=== PATIENT | male | born 1935 | race Caucasian/White ===

== ENCOUNTER 2017-10-09 09:12 | Inpatient (IN) ==
[2017-10-09] MEDS ORDERED: ONDANSETRON ODT 4 MG TABLET SL ONE (09:35)
[2017-10-09] MEDS ORDERED: 0.9 % SODIUM CHLORIDE 1,000 ML IV ONE ×2 (09:35→10:43)
[2017-10-09] MEDS ORDERED: LEVOFLOXACIN 500 MG TABLET PO ONE (09:35)
[2017-10-09 10:27] LABS: Basophils # (Auto) 0 K/mcL (0.0-0.3); Basophils % (Auto) 0 % (0.0-2.0); Eosinophils # (Auto) 0.3 K/mcL (0.0-0.7); Eosinophils % (Auto) 2.3 % (0.0-7.0); Granulocytes % (Auto) 76.7 % (38.0-78.0); Lymphocytes % (Auto) 8.4 % (15.5-49.0); Mean Cell Volume 93.4 fL (80.0-100.0); Mean Corpuscular HGB Conc 33.9 g/dL (31.0-36.0); Mean Corpuscular Hemoglobin 31.7 pg (26.0-34.0); Monocytes # (Auto) 1.5 K/mcL (0.1-0.9); Monocytes % (Auto) 12.6 % (1.0-12.0); Platelet Count 150 K/mcL (140-440); RBC 4.79 M/mcL (4.50-5.90); Red Cell Distribution Width 13.7 % (11.5-14.5)
[2017-10-09 10:33] LABS: Appearance,Urine CLEAR; Bacteria,Urine 0 /hpf (0); Bilirubin,Urine NEG (NEG); Color,Urine YELLOW; Glucose,Urine (UA) NEGATIVE (NEG); Leukocyte Esterase,Urine NEG /uL (NEG); Mucus,Urine FEW /hpf (0); Protein,Urine NEG (NEG); Specific Gravity,Urine 1.013 (1.000-1.035); Urine Blood 0.2 mg/dL (<0.03); Urine Hyaline Cast 1 /lpf (0-2); Urine RBC 103 /hpf (0-1); Urine Squamous Epithelial Cell 0 /hpf (0-4); Urine WBC 1 /hpf (0-4); Urobilinogen,Urine NEG (NEG)
[2017-10-09 11:11] LABS: ALT/SGPT 14 U/l (0-40); Albumin 3.8 gm/dL (3.2-5.2); Albumin/Globulin Ratio 1.2 (1.0-2.3); Alkaline Phosphatase 45 U/L (39-117); Blood Urea Nitrogen 52 mg/dl (8-23)
--- NOTE | 2017-10-09 11:32 | Emergency Department Note ---
Male Urogenital HPI - General Chief complaint: Urogenital-Male Stated complaint: trouble voiding Time Seen by Provider: 10/09/17 09:25 Source: patient, family Mode of arrival: ambulatory Limitations: no limitations - History of Present Illness HPI Narrative: 82-year-old male with a history of prostate problems comes in for inability to void for the last 2 days. He is having back pain and bladder pressure but no fever. Denies any kidney problems and has a baseline creatinine of 1. He denies any known triggers or drugs. He did have a flu 1 month ago but required without event. He is on Flomax - Related Data Home Medications Medication Instructions Recorded Confirmed ascorbic acid (vitamin C) 500 mg 500 mg PO QDAY tab 02/18/15 10/09/17 tablet calcium carbonate 500 mg calcium 500 mg PO QDAY tab 02/18/15 10/09/17 (1,250 mg) tablet cholecalciferol (vitamin D3) 5,000 10,000 unit PO QDAY tab 02/18/15 10/09/17 unit tablet flaxseed oil 1,030 mg capsule 1,300 mg PO DAILY 02/18/15 10/09/17 [id number] [id number] 1 cap PO QDAY 02/18/15 10/09/17 oil 350 mg- 400 mg capsule Previous Rx's Medication Instructions Recorded trazodone 50 mg tablet 50 mg PO QHS PRN 90 Days #90 tab 07/07/16 tamsulosin 0.4 mg capsule 0.4 mg PO QDAY 90 Days #90 cap 06/12/17 atorvastatin 20 mg tablet 20 mg PO QHS 90 Days #90 tab 08/31/17 Allergies Allergy/AdvReac Type Severity Reaction Status Date / Time diphenhydramine Allergy Unknown Unknown Verified 05/11/17 08:17 [From Advil PM] ibuprofen [From Advil PM] Allergy Unknown Unknown Verified 05/11/17 08:17 Review of Systems All systems ED: reviewed and negative except as stated. Past Medical History - Past Medical History Attestation: Yes: The following information was validated with the patient. Medical history: Reports: hyperlipidemia, hypertension, other (BPH with lower urinary tract symptoms, prediabetes, insomnia) Surgical history ED: Reports: herniorrhaphy, tonsillectomy - Social History smoking status: Never smoker Physical Exam No acute distress. Normocephalic atraumatic. Conjunctive are clear sclerae nonicteric. No nasal discharge or congestion. Oropharynx is pink and moist. Neck is supple without lymphadenopathy or thyromegaly. No carotid bruit. Heart is regular rate and rhythm no murmur appreciated. Lungs are clear to auscultation bilaterally without wheezes rales rhonchi or respiratory distress. Abdomen soft nontender except for suprapubic area. Normoactive bowel sounds. No peritoneal signs or guarding. +2 radial pulse. No pedal edema. Alert and oriented. Skin exam shows very mild intertrigo at the inguinal area meets the pannus. Mild erythema there but no maceration. Limitations: no limitations Course Vital Signs Temperature 96.4 F L 10/09/17 09:12 Pulse Rate 92 H 10/09/17 09:12 Respiratory Rate 20 10/09/17 09:12 Blood Pressure 169/100 10/09/17 09:12 Pulse Oximetry (%) 97 10/09/17 09:12 Temperature 98.4 F 10/09/17 20:19 Pulse Rate 77 10/09/17 12:05 Respiratory Rate 16 10/09/17 20:19 Blood Pressure 157/79 10/09/17 20:19 Pulse Oximetry (%) 97 10/09/17 20:19 Urogenital-Male - Lab Data Lab results reviewed: Yes I reviewed the patient's lab results. Result diagrams: 10/09/17 09:44 10/09/17 12:00 Lab Results 10/09/17 10/09/17 10/09/17 Range/Units 09:44 09:44 09:57 WBC 12.1 H (4.5-11.0) K/mcL RBC 4.79 (4.50-5.90) M/mcL Hgb 15.2 (13.5-16.5) g/dL Hct 44.8 (41.0-55.0) % MCV 93.4 (80.0-100.0) fL MCH 31.7 (26.0-34.0) pg MCHC 33.9 (31.0-36.0) g/dL RDW 13.7 (11.5-14.5) % Plt Count 150 (140-440) K/mcL MPV 9.9 (7.4-10.4) fL Gran % 76.7 (38.0-78.0) % Lymph % (Auto) 8.4 L (15.5-49.0) % [place] % (Auto) 12.6 H (1.0-12.0) % Eos % (Auto) 2.3 (0.0-7.0) % Baso % (Auto) 0 (0.0-2.0) % Gran # 9.3 H (1.8-8.0) K/mcL Lymph # (Auto) 1.0 L (1.5-4.8) K/mcL [place] # (Auto) 1.5 H (0.1-0.9) K/mcL Eos # (Auto) 0.3 (0.0-0.7) K/mcL Baso # (Auto) 0 (0.0-0.3) K/mcL Sodium 138 (133-145) mmol/L Potassium 4.8 (3.3-5.1) mmol/L Chloride 99 (96-108) mmol/L Carbon Dioxide 21 L (22-30) mmol/L Anion Gap 18.0 H (8-16) BUN 52 H (8-23) mg/dl Creatinine 6.2 H* (0.7-1.2) mg/dl GFR Calculation 8 Glucose 106 H (70-105) mg/dL Calcium 9.2 (8.6-10.4) mg/dl Phosphorus (2.7-4.5) mg/dL Magnesium (1.6-2.5) mg/dL Total Bilirubin 0.5 (0.0-1.0) mg/dL AST 21 (0-37) U/l ALT 14 (0-40) U/l Alkaline Phosphatase 45 (39-117) U/L Total Protein 7.0 (5.9-8.4) gm/dL Albumin 3.8 (3.2-5.2) gm/dL Globulin 3.2 (2.2-3.7) gm/dL Albumin/Globulin Ratio 1.2 (1.0-2.3) Procalcitonin (<0.10) ng/mL Urine Color Yellow Urine Appearance Clear Urine pH 6.0 (5.0-9.0) Ur Specific [place] 1.013 (1.000-1.035) Urine Protein Neg (NEG) mg/dL Urine Glucose (UA) Negative (NEG) mg/dL Urine Ketones Neg (NEG) mg/dL Urine Occult Blood 0.2 A (<0.03) mg/dL Urine Nitrate Neg (NEG) Urine Bilirubin Neg (NEG) mg/dL Urine Urobilinogen Neg (NEG) mg/dL Ur Leukocyte Esterase Neg (NEG) /uL Urine RBC 103 H (0-1) /hpf Urine WBC 1 (0-4) /hpf Ur Squamous Epith Cells 0 (0-4) /hpf Urine Bacteria 0 (0) /hpf Hyaline Casts 1 (0-2) /lpf Urine Mucus Few (0) /hpf Ur Culture Indicated? No Urine Eosinophils Ur Random Creatinine mg/dl U Random Total Protein mg/dl U [place] Prot/Creat Ratio mg:mg Ur Random Sodium mmol/L 10/09/17 10/09/17 10/09/17 Range/Units 09:57 09:57 12:00 WBC (4.5-11.0) K/mcL RBC (4.50-5.90) M/mcL Hgb (13.5-16.5) g/dL Hct (41.0-55.0) % MCV (80.0-100.0) fL MCH (26.0-34.0) pg MCHC (31.0-36.0) g/dL RDW (11.5-14.5) % Plt Count (140-440) K/mcL MPV (7.4-10.4) fL Gran % (38.0-78.0) % Lymph % (Auto) (15.5-49.0) % [place] % (Auto) (1.0-12.0) % Eos % (Auto) (0.0-7.0) % Baso % (Auto) (0.0-2.0) % Gran # (1.8-8.0) K/mcL Lymph # (Auto) (1.5-4.8) K/mcL [place] # (Auto) (0.1-0.9) K/mcL Eos # (Auto) (0.0-0.7) K/mcL Baso # (Auto) (0.0-0.3) K/mcL Sodium (133-145) mmol/L Potassium (3.3-5.1) mmol/L Chloride (96-108) mmol/L Carbon Dioxide (22-30) mmol/L Anion Gap (8-16) BUN (8-23) mg/dl Creatinine (0.7-1.2) mg/dl GFR Calculation Glucose (70-105) mg/dL Calcium (8.6-10.4) mg/dl Phosphorus (2.7-4.5) mg/dL Magnesium (1.6-2.5) mg/dL Total Bilirubin (0.0-1.0) mg/dL AST (0-37) U/l ALT (0-40) U/l Alkaline Phosphatase (39-117) U/L Total Protein (5.9-8.4) gm/dL Albumin (3.2-5.2) gm/dL Globulin (2.2-3.7) gm/dL Albumin/Globulin Ratio (1.0-2.3) Procalcitonin < 0.10 (<0.10) ng/mL Urine Color Urine Appearance Urine pH (5.0-9.0) Ur Specific [place] (1.000-1.035) Urine Protein (NEG) mg/dL Urine Glucose (UA) (NEG) mg/dL Urine Ketones (NEG) mg/dL Urine Occult Blood (<0.03) mg/dL Urine Nitrate (NEG) Urine Bilirubin (NEG) mg/dL Urine Urobilinogen (NEG) mg/dL Ur Leukocyte Esterase (NEG) /uL Urine RBC (0-1) /hpf Urine WBC (0-4) /hpf Ur Squamous Epith Cells (0-4) /hpf Urine Bacteria (0) /hpf Hyaline Casts (0-2) /lpf Urine Mucus (0) /hpf Ur Culture Indicated? Urine Eosinophils TNP Ur Random Creatinine 69.5 mg/dl U Random Total Protein 12 mg/dl U [place] Prot/Creat Ratio 0.17 mg:mg Ur Random Sodium 137 mmol/L 10/09/17 10/09/17 Range/Units 12:00 12:00 WBC (4.5-11.0) K/mcL RBC (4.50-5.90) M/mcL Hgb (13.5-16.5) g/dL Hct (41.0-55.0) % MCV (80.0-100.0) fL MCH (26.0-34.0) pg MCHC (31.0-36.0) g/dL RDW (11.5-14.5) % Plt Count (140-440) K/mcL MPV (7.4-10.4) fL Gran % (38.0-78.0) % Lymph % (Auto) (15.5-49.0) % [place] % (Auto) (1.0-12.0) % Eos % (Auto) (0.0-7.0) % Baso % (Auto) (0.0-2.0) % Gran # (1.8-8.0) K/mcL Lymph # (Auto) (1.5-4.8) K/mcL [place] # (Auto) (0.1-0.9) K/mcL Eos # (Auto) (0.0-0.7) K/mcL Baso # (Auto) (0.0-0.3) K/mcL Sodium 143 (133-145) mmol/L Potassium 5.1 (3.3-5.1) mmol/L Chloride 107 (96-108) mmol/L Carbon Dioxide 19 L (22-30) mmol/L Anion Gap 17.0 H (8-16) BUN 43 H (8-23) mg/dl Creatinine 4.1 H 4.2 H (0.7-1.2) mg/dl GFR Calculation 13 12 Glucose 93 (70-105) mg/dL Calcium 8.8 (8.6-10.4) mg/dl Phosphorus 4.2 (2.7-4.5) mg/dL Magnesium 2.4 (1.6-2.5) mg/dL Total Bilirubin (0.0-1.0) mg/dL AST (0-37) U/l ALT (0-40) U/l Alkaline Phosphatase (39-117) U/L Total Protein (5.9-8.4) gm/dL Albumin 3.8 (3.2-5.2) gm/dL Globulin (2.2-3.7) gm/dL Albumin/Globulin Ratio (1.0-2.3) Procalcitonin (<0.10) ng/mL Urine Color Urine Appearance Urine pH (5.0-9.0) Ur Specific [place] (1.000-1.035) Urine Protein (NEG) mg/dL Urine Glucose (UA) (NEG) mg/dL Urine Ketones (NEG) mg/dL Urine Occult Blood (<0.03) mg/dL Urine Nitrate (NEG) Urine Bilirubin (NEG) mg/dL Urine Urobilinogen (NEG) mg/dL Ur Leukocyte Esterase (NEG) /uL Urine RBC (0-1) /hpf Urine WBC (0-4) /hpf Ur Squamous Epith Cells (0-4) /hpf Urine Bacteria (0) /hpf Hyaline Casts (0-2) /lpf Urine Mucus (0) /hpf Ur Culture Indicated? Urine Eosinophils Ur Random Creatinine mg/dl U Random Total Protein mg/dl U [place] Prot/Creat Ratio mg:mg Ur Random Sodium mmol/L - Radiology Data Radiology results reviewed: Yes I reviewed the patient's radiology results. Initial bladder scan was 812. After putting in rico we did get out over 1500 milliliters of red urine-obvious hematuria. Disposition Pt seen by MEDICAL SCREENER/PA only: No Clinical Impression: Acute retention of urine, Acute kidney injury Summary: After initial evaluation and placing Rico after bladder scan we started IV fluids because of decreased intake. Laboratory was ordered. Levaquin was started for possible prostatitis and Zofran for nausea. Laboratory showed increasing creatinine to 6.3. He ended up getting 2 L of IV fluid Because of the acute kidney injury secondary to urinary retention hospitalist was contacted for admission. Dr. West agreed to accept the patient for further workup and treatment Disposition: Xfer As Inpt ([facility]) Condition: Fair
--- NOTE | 2017-10-09 12:17 | Nephrology Consult Note ---
History of Present Illness - Reason for Consult Patient information: Note initiated : 10/09/17 at 12:14 pm Service Date, if different from initiated Date: [] Patient: Gilbert Hutchinson 82 y/o M admitted on for Trouble Voiding. Chief Complaint: [] Consult date: 10/09/17 acute renal failure Requesting physician: Trenton Painting - Chief Complaint Unable to urinate for 2 days - History of Present Illness Gilbert Hutchinson is an [id number] male with no history of chronic kidney disease , but BPH with LUTS, hypertension, hyperlipidemia presented to ED for unable to urinate for 2 days. He had previous episodes of urinary retention but declined/ delayed urology evaluation. Review of Systems Constitutional: anorexia, weakness Nose, mouth and throat: no headache(s), no neck pain Cardiovascular: leg edema, no chest pain Respiratory: no cough, no dyspnea, no wheezing Gastrointestinal: no diarrhea, no melena, no nausea, no vomiting Genitourinary: change in urinary stream, difficulty urinating Musculoskeletal: no neck pain, no stiffness Integumentary: no erythema, no jaundice Neurological: weakness, no confusion Psychiatric: no anxiety, no confusion Endocrine: no change in body appearance, no heat intolerance Hematologic/Lymphatic: no easy bleeding, no easy bruising Allergic/Immunologic: no tongue swelling, no uticaria Past History Past medical history: Medical History (Last Reviewed 05/11/17 @ 09:22 by Pretty Armstrong DO) Benign prostatic hypertrophy without lower urinary tract symptoms (LUTS) ( Chronic 08/08/13) Keratosis pilaris (Chronic) Seborrheic dermatitis (Chronic) Urinary retention (Chronic) Encounter for Health Maintenance Examination in Adult (Chronic) Lymphadenitis (Chronic) Benign localized prostatic hyperplasia with lower urinary tract symptoms (LUTS) (Chronic) Prostate disorder (Chronic) Prediabetes (Chronic 10/24/13) Insomnia (Chronic) Hypertension, essential (Chronic 10/24/13) Eczema (Chronic) Dyslipidemia (Chronic) Atopic dermatitis (Chronic) Abdominal pain (Resolved) Past surgical history: Past Surgical History (Last Reviewed 05/11/17 @ 09:22 by Pretty Armstrong DO) History of colonoscopy (Chronic) History of hernia repair (Chronic) History of tonsillectomy (Chronic) Past family history: Family History (Last Reviewed 09/21/17 @ 09:22 by Pretty Armstrong DO) Mother Chronic obstructive pulmonary disease Daughter Malignant neoplasm of colon, Onset Age: 38 Father Family history of cardiac disorder Acute myocardial infarction Grandmother Family history of cardiac disorder Essential hypertension Past social history: Lives with his in [place]. Medications and Allergies Home Medications Medication Instructions Recorded Confirmed Type ascorbic acid (vitamin C) 500 mg 500 mg PO QDAY tab 02/18/15 05/11/17 History tablet calcium carbonate 500 mg calcium 500 mg PO QDAY tab 02/18/15 05/11/17 History (1,250 mg) tablet cholecalciferol (vitamin D3) 5,000 10,000 unit PO QDAY tab 02/18/15 05/11/17 History unit tablet flaxseed oil 1,030 mg capsule See Dose Instructions .ROUTE 02/18/15 05/11/17 History .MEDSUPPLY -ykm-egh-other [id number] 1 cap PO QDAY 02/18/15 05/11/17 History oil 350 mg- 400 mg capsule trazodone 50 mg tablet 50 mg PO QHS PRN 90 Days #90 tab 07/07/05/11/17 Rx tamsulosin 0.4 mg capsule 0.4 mg PO QDAY 90 Days #90 cap 06/12/17 Rx atorvastatin 20 mg tablet 20 mg PO QHS 90 Days #90 tab 08/31/17 Rx Allergies Allergy/AdvReac Type Severity Reaction Status Date / Time diphenhydramine Allergy Unknown Unknown Verified 05/11/17 08:17 [From Advil PM] ibuprofen [From Advil PM] Allergy Unknown Unknown Verified 05/11/17 08:17 Exam - Vital Signs Vital signs: Temp Pulse Resp BP Pulse Ox 96.4 F L 77 20 154/79 94 10/09/17 09:12 10/09/17 12:05 10/09/17 12:05 10/09/17 12:05 10/09/17 12:05 - General Appearance General appearance: well-developed, well-nourished, appears started age EENT: mucous membranes moist, hearing intact Neck: supple Respiratory: clear Cardiology: normal S1, normal S2 Gastrointestinal: normoactive bowel sounds, no tenderness Integumentary: no rash, warm and dry Neurologic: alert and oriented x3 Musculoskeletal: no cyanosis Psychiatric: mood/affect appropriate, cooperative Additional exam: Trace lower extremity edema. Results - Lab Results 10/09/17 09:44 10/09/17 09:44 Most recent lab results Calcium 9.2 mg/dl (8.6-10.4) 10/09/17 09:44 Assessment and Plan (1) Acute kidney injury Due to obstructive nephropathy from prostate enlargement based on evaluation so far. Anticipate full recovery. Status: Acute Priority: High (2) Obstructive nephropathy due to benign prostatic hyperplasia Urology evaluation and treatment. Would keep Pelaez until urology evaluation. Status: Acute Priority: High (3) High anion gap metabolic acidosis Anticipate post obstructive diuresis and electrolyte abnormalities. Would not replace IV fluid more than 1/2 urine output. Status: Acute Priority: Medium (4) Benign localized prostatic hyperplasia with lower urinary tract symptoms ( LUTS) Status: Chronic Priority: Medium
[2017-10-09] MEDS ORDERED: ONDANSETRON 4 MG/2 ML VIAL IV PRN (12:24)
[2017-10-09] MEDS ORDERED: ACETAMINOPHEN 325 MG TABLET PO PRN (12:24)
[2017-10-09] MEDS ORDERED: HYDROcodone/APAP 5/325MG TABLET PO PRN (12:24)
[2017-10-09] MEDS ORDERED: NALOXONE HCL 0.4 MG/ML VIAL IV PRN (12:24)
[2017-10-09] MEDS ORDERED: MAGNESIUM HYDROXIDE 30 ML ORAL.SUSP PO PRN (12:24)
[2017-10-09] MEDS: 0.9 % SODIUM CHLORIDE 1,000 ML IV SCH (12:48)
--- NOTE | 2017-10-09 13:00 | XRay Report ---
HISTORY: Reason for Exam:renal failure FINDINGS: Lungs are clear and normally expanded. There is no evidence of pulmonary edema or fluid overload. The heart size, mediastinum and drake are normal. 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 Left clavicle is deformed by an old healed fracture. IMPRESSION: No acute abnormality Interpreted and Authenticated by: Lyndon Conley 10/09/17
--- NOTE | 2017-10-09 13:17 | Internal Med History&Physical ---
Medical - H&P: HPI Patient information: Note initiated : 10/09/17 at 1:11 pm Service Date, if different from initiated Date: [] Patient: Gilbert Hutchinson 82 y/o M admitted on 10/09/17 for Trouble Voiding. Chief Complaint: [] History of present illness: Mr. Hutchinson is a 82 year old Male, with history of BPH, presents to the emergency room today, with complaints of lower abdominal pain that has been bothering him for the last 2days. The patient notes that he was able to pass urine well. Last Monday, he was on a trip, n Monday and since then he has not been able to pass urine. He's had increased urgency, constant desire to pass urine but has not been able to pass any urine. The patient's condition worsened over the weekend, he started to develop lower abdominal pain, moderate to severe, and therefore he decided to present to the emergency room for further evaluation. pain is the lower abdomen , intermittent, waxing and waning intensity, nonradiating, spastic in nature. Usually associated with urgency to pass urine. The patient has had a similar episode in the past 3 years ago. He was not able to pass any urine, but that time he had taken the Flomax and he responded well. This time around, he had not taken his Flomax with him, I believe for 2-3 days. And despite taking the Flomax when he came back the medication did not help much. The patient denies any increased frequency of urination, burning urination, fever, chills, headache, dizziness, chest pain, shortness of breath. No nausea , no vomiting, no diarrhea, no constipation. In the emergency room. BECKER was passed, 1700 cc was removed, creatinine was 6.3. B UN was 52. Patient was admitted to the hospital for further management. Nephrology consulted and evaluated the patient. All systems: reviewed and no additional remarkable complaints except as stated ( as per HPI) Medical - H&P: PMH Medical history: Medical History (Last Reviewed 05/11/17 @ 09:22 by Pretty Armstrong DO) Benign prostatic hypertrophy without lower urinary tract symptoms (LUTS) ( Chronic 08/08/13) Keratosis pilaris (Chronic) Seborrheic dermatitis (Chronic) Urinary retention (Chronic) Encounter for Health Maintenance Examination in Adult (Chronic) Lymphadenitis (Chronic) Benign localized prostatic hyperplasia with lower urinary tract symptoms (LUTS) (Chronic) Prostate disorder (Chronic) Prediabetes (Chronic 10/24/13) Insomnia (Chronic) Hypertension, essential (Chronic 10/24/13) Eczema (Chronic) Dyslipidemia (Chronic) Atopic dermatitis (Chronic) Abdominal pain (Resolved) Surgical history: Past Surgical History (Last Reviewed 05/11/17 @ 09:22 by Pretty Armstrong DO) History of colonoscopy (Chronic) History of hernia repair (Chronic) History of tonsillectomy (Chronic) Pertinent family history: Family History (Last Reviewed 05/11/17 @ 09:22 by Pretty Armstrong DO) Mother Chronic obstructive pulmonary disease Daughter Malignant neoplasm of colon, Onset Age: 38 Father Family history of cardiac disorder Acute myocardial infarction Grandmother Family history of cardiac disorder Essential hypertension Medical - H&P: Meds Home Medications Medication Instructions Recorded Confirmed Type ascorbic acid (vitamin C) 500 mg 500 mg PO QDAY tab 02/18/15 10/09/17 History tablet calcium carbonate 500 mg calcium 500 mg PO QDAY tab 02/18/15 10/09/17 History (1,250 mg) tablet cholecalciferol (vitamin D3) 5,000 10,000 unit PO QDAY tab 02/18/15 10/09/17 History unit tablet flaxseed oil 1,030 mg capsule 1,300 mg PO DAILY 02/18/15 10/09/17 History [id number]-[id number]-other [id number] 1 cap PO QDAY 02/18/15 10/09/17 History oil 350 mg- 400 mg capsule trazodone 50 mg tablet 50 mg PO QHS PRN 90 Days #90 tab 07/07/16 10/09/17 Rx tamsulosin 0.4 mg capsule 0.4 mg PO QDAY 90 Days #90 cap 06/12/17 10/09/17 Rx atorvastatin 20 mg tablet 20 mg PO QHS 90 Days #90 tab 08/31/17 10/09/17 Rx Allergies Allergy/AdvReac Type Severity Reaction Status Date / Time diphenhydramine Allergy Unknown Unknown Verified 05/11/17 08:17 [From Advil PM] ibuprofen [From Advil PM] Allergy Unknown Unknown Verified 05/11/17 08:17 Medical - H&P: Exam - Constitutional Vitals: Temp Pulse Resp BP Pulse Ox 96.4 F L 77 20 154/79 94 10/09/17 09:12 10/09/17 12:05 10/09/17 12:05 10/09/17 12:05 10/09/17 12:05 Exam: GENERAL: The patient is a well-developed, well-nourished in no apparent distress. Is alert and oriented x3. VITAL SIGNS: Reviewed and as noted elsewhere. HEENT: Head is normocephalic and atraumatic. Extraocular muscles are intact. Pupils are equal, round, and reactive to light. Nares appeared normal. Mouth appears any without lesions. Mucous membranes are moist. NECK: Normal to inspection, Supple, No lymphadenopathy or thyromegaly. LUNGS: Air entry equal on both sides, no wheezing, crackles or rhonchi noted. No accessory muscles of respiration HEART: Regular rate and rhythm normal, S1 and S2 heard, no Gallop, S3 or Rub Noted, No Gross murmur heard. ABDOMEN: Soft, mild tenderness in hypogastric region, and nondistended. Positive bowel sounds. No hepatosplenomegaly was noted.becker in place, dark pink reddish urine in the bag. EXTREMITIES: No cyanosis, clubbing, rash, lesions or edema. NEUROLOGIC: Cranial nerves II through XII are grossly intact. Motor and Sensory System Grossly Intact PSYCHIATRIC: Normal affect, Normal Mood. Appropriate Behavior. SKIN: No ulceration or wounds noted, No jaundice, No rash noted. Medical - H&P: Reslt - Labs CBC & Chem 7: 10/09/17 09:44 10/09/17 12:00 Labs: Short CBC 10/09/17 Range/Units 09:44 WBC 12.1 H (4.5-11.0) K/mcL Hgb 15.2 (13.5-16.5) g/dL Hct 44.8 (41.0-55.0) % Plt Count 150 (140-440) K/mcL BMP 10/09/17 10/09/17 09:44 12:00 Sodium 138 Potassium 4.8 Chloride 99 Carbon Dioxide 21 L BUN 52 H Creatinine 6.2 H* 4.1 H Glucose 106 H Calcium 9.2 Liver Function 10/09/17 Range/Units 09:44 Total Bilirubin 0.5 (0.0-1.0) mg/dL AST 21 (0-37) U/l ALT 14 (0-40) U/l Alkaline Phosphatase 45 (39-117) U/L Albumin 3.8 (3.2-5.2) gm/dL Urine 10/09/17 Range/Units 09:57 Urine Color Yellow Urine Appearance Clear Urine pH 6.0 (5.0-9.0) Ur Specific [place] 1.013 (1.000-1.035) Urine Protein Neg (NEG) mg/dL Urine Glucose (UA) Negative (NEG) mg/dL Medical - H&P: A/P - Narrative A/P Narrative: A/P BPH with Urinary obstruction: Becker in place, resume folmax, double dose to 0.4mg bid, will likely d/c with bceker in place, urology eval as outpatient. Acute Kidney Injury: Due to bph, fena is 8.9, low protein, hematuria on ua likely related to becker, get renal usg, nephrology following. patient may become polyuric, hence will monitor electrolytes, monitor on tele for now, as has high risk of electrolyte disturbances. hagma: from renal failure anticipate improvement HLD resume statin DVT hep sq Diet regular Full code Medical - H&P: Qual - Stroke Symptom Onset Unknown: No - VTE Deep Vein Thrombosis/Pulmonary Embolism Present on Admission: No Social History - Tobacco smoking status: Never smoker - Alcohol alcohol intake frequency: a few times a month - Substance use substance use type: does not use
[2017-10-09 16:02] LABS: Albumin 3.8 gm/dL (3.2-5.2)
--- NOTE | 2017-10-09 16:41 | Ultrasound Report ---
History: Difficulty urinating and renal failure Findings: The right kidney measures 5.7 x 6.5 x 12.0 cm. The cortex is thinned and echogenic. There are several parapelvic cysts and a couple cortical cysts. The largest is a parapelvic cyst in the lower half and measures 1.5 x 2.0 x 2.7 cm. No calculus or hydronephrosis are present on the right side. Left kidney measures 5.5 x 6.3 x 12.6 cm. Cortex is thin and echogenic. There are multiple cysts. This includes both parapelvic cysts and cortical cysts. The largest extends exophytically from the medial aspect of the lower pole and measures 5.4 x 6.1 cm. Largest parapelvic cyst 2.5 x 2.5 cm. There is no evidence of calculus or solid mass the left kidney. There is a 3.7 x 3.8 cm cyst in the inferior aspect of the spleen. Prostate is severely enlarged with an estimated volume of 199 cc. Patient has a Pelaez catheter in the bladder and the bladder is decompressed. Comparison with the prior CT done on 03/04/15 shows the renal cysts are chronic. Splenic cyst is also chronic but is enlarged 1 cm. The thinning of the renal cortex has progressed since prior CT scan. 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
[2017-10-09] MEDS ORDERED: FAMOTIDINE 20 MG TABLET PO SCH (21:00)
[2017-10-09] MEDS: HEPARIN 5,000 UNIT/ML VIAL SQ SCH (21:42)
[2017-10-10] MEDS: 0.9 % SODIUM CHLORIDE 1,000 ML IV SCH (01:32)
--- NOTE | 2017-10-10 06:56 | Nephrology Progress Note ---
Subjective Patient information: Note initiated : 10/10/17 at 6:53 am Service Date, if different from initiated Date: [] Patient: Gilbert Hutchinson 82 y/o M admitted on 10/09/17 for Trouble Voiding. Chief Complaint: Unable to urinate for 2 days. Principal diagnosis: Acute kidney injury due to obstructive nephropathy Interval history: Gilbert Hutchinson is an [id number] male with no history of chronic kidney disease , but BPH with LUTS, hypertension, hyperlipidemia presented to ED for unable to urinate for 2 days. He had previous episodes of urinary retention but declined/ delayed urology evaluation. Pertinent ROS: Feels better. No nausea. No chest pain. No shortness of breath. No rash. No confusion. Pelaez catheter in. Objective - Vital Signs Vital signs: Vital Signs Temp Pulse Pulse Resp BP BP Pulse Ox 10/10/17 04:00 97.8 F 64 18 95 10/10/17 00:00 98.2 F 65 18 97 10/09/17 20:19 98.4 F 16 157/79 97 10/09/17 19:35 98.7 F 16 140/79 96 10/09/17 15:36 98 F 16 93 10/09/17 12:05 77 20 154/79 94 10/09/17 11:32 77 154/79 94 10/09/17 11:02 73 153/75 94 10/09/17 10:59 73 147/80 95 10/09/17 09:44 83 178/96 96 10/09/17 09:12 96.4 F L 92 H 20 169/100 97 Intake and Output 10/09/17 10/10/17 10/10/17 21:59 05:59 13:59 Intake Total 240 / 240 955 / 955 Output Total 1775 / 1775 1250 / 1250 Balance -1535 / -1535 -295 / -295 Intake: IV 955 / 955 Sodium Chloride 0.9% 1,000 ml @ 955 / 955 75 mls/hr IV .[id number] [facility] Rx#: [id number] Oral 240 / 240 Output: Urine Catheter Amount 1775 / 1775 1250 / 1250 Other: Meal Dinner Percent of Meal Consumed 90 Feeding Ability Assist with Tray Set Up Weight 222 lb 6.4 oz Intake & Output: Intake & Output 10/09/17 10/10/17 10/10/17 21:59 05:59 13:59 Intake Total 240 / 240 955 / 955 Output Total 1775 / 1775 1250 / 1250 Balance -1535 / -1535 -295 / -295 Weight 222 lb 6.4 oz Intake: IV 955 / 955 Sodium Chloride 0.9% 1,000 ml @ 955 / 955 75 mls/hr IV .[id number] [facility] Rx#: [id number] Oral 240 / 240 Output: Urine Catheter Amount 1775 / 1775 1250 / 1250 Other: Meal Dinner Percent of Meal Consumed 90 Feeding Ability Assist with Tray Set Up - General Appearance General appearance: well-developed, well-nourished, appears started age EENT: mucous membranes moist Neck: supple Respiratory: clear Cardiology: normal S1, normal S2 Gastrointestinal: no tenderness Integumentary: no rash, warm and dry Neurologic: alert and oriented x3 Musculoskeletal: no cyanosis Psychiatric: mood/affect appropriate, cooperative - Lab 10/09/17 09:44 10/09/17 12:00 Most recent lab results Calcium 8.8 mg/dl (8.6-10.4) 10/09/17 12:00 Phosphorus 4.2 mg/dL (2.7-4.5) 10/09/17 12:00 Magnesium 2.4 mg/dL (1.6-2.5) 10/09/17 12:00 Assessment and Plan (1) Acute kidney injury Due to obstructive nephropathy from prostate enlargement. Improving with Pelaez catheter. Anticipate full recovery. Renal panel and Mg pending. Status: Acute Priority: High (2) Obstructive nephropathy due to benign prostatic hyperplasia Urology referral, nonurgent. Anticipate discharge home with Pelaez catheter. Status: Acute Priority: High (3) High anion gap metabolic acidosis Electrolytes pending. Status: Acute Priority: Medium (4) Benign localized prostatic hyperplasia with lower urinary tract symptoms ( LUTS) Status: Chronic Priority: Medium
[2017-10-10 09:02] LABS: Basophils # (Auto) 0 K/mcL (0.0-0.3); Basophils % (Auto) 0.3 % (0.0-2.0); Eosinophils # (Auto) 0.5 K/mcL (0.0-0.7); Eosinophils % (Auto) 5.8 % (0.0-7.0); Granulocytes % (Auto) 62.9 % (38.0-78.0); Lymphocytes # (Auto) 1.5 K/mcL (1.5-4.8); Mean Cell Volume 93.7 fL (80.0-100.0); Mean Corpuscular HGB Conc 34.1 g/dL (31.0-36.0); Monocytes # (Auto) 1.2 K/mcL (0.1-0.9); Platelet Count 147 K/mcL (140-440); RBC 4.39 M/mcL (4.50-5.90); Red Cell Distribution Width 13.8 % (11.5-14.5)
[2017-10-10 09:05] LABS: Albumin 3.4 gm/dL (3.2-5.2); Blood Urea Nitrogen 22 mg/dl (8-23)
[2017-10-10] MEDS: HEPARIN 5,000 UNIT/ML VIAL SQ SCH (09:09)
[2017-10-10] MEDS ORDERED: TAMSULOSIN 0.4 MG CAPSULE PO SCH ×2 (09:53→21:00)
[2017-10-10] MEDS ORDERED: MAGNESIUM HYDROXIDE 30 ML ORAL.SUSP PO PRN (10:26)
[2017-10-10] MEDS ORDERED: 0.9 % SODIUM CHLORIDE 1,000 ML IV SCH (10:26)
[2017-10-10] MEDS ORDERED: NALOXONE HCL 0.4 MG/ML VIAL IV PRN (10:26)
[2017-10-10] MEDS ORDERED: ACETAMINOPHEN 325 MG TABLET PO PRN (10:26)
[2017-10-10] MEDS ORDERED: HYDROcodone/APAP 5/325MG TABLET PO PRN (10:26)
[2017-10-10] MEDS ORDERED: ONDANSETRON 4 MG/2 ML VIAL IV PRN (10:26)
--- NOTE | 2017-10-10 14:13 | Discharge Summary ---
Medical - DS: Prov Patient information: Note initiated : 10/10/17 at 2:09 pm Service Date, if different from initiated Date: [] Patient: Gilbert Hutchinson 82 y/o M admitted on 10/09/17 for Trouble Voiding/BPH with Urinary Obstruction. Chief Complaint: [] Date of admission: 10/09/17 12:15 Discharge date: 10/10/17 Primary care physician: Pretty Armstrong DO Admitting clinician: Jasmyne West Consults: 10/09/17 11:37 Consult to Physician [CONS] Stat Comment: Consulting Provider: Jasmyne West Reason For Exam: Physician to Consult Discharging clinician: Jasmyne West Medical - DS: Meds - Discharge Medications Active and Home Medications: Home Medications ascorbic acid (vitamin C) 500 mg tablet 500 mg PO QDAY tab 02/18/15 [History Confirmed 10/09/17 Last Taken Unknown] calcium carbonate 500 mg calcium (1,250 mg) tablet 500 mg PO QDAY tab 02/18/15 [History Confirmed 10/09/17 Last Taken Unknown] cholecalciferol (vitamin D3) 5,000 unit tablet 10,000 unit PO QDAY tab [History Confirmed 10/09/17 Last Taken Unknown] flaxseed oil 1,030 mg capsule 1,300 mg PO DAILY 02/18/15 [History Confirmed Last Taken 10/07/17] snamo3-inw-mtr-other [id number]-dody oil 350 mg- 400 mg capsule 1 cap PO QDAY 02/18 [History Confirmed 10/09/17 Last Taken Unknown] trazodone 50 mg tablet 50 mg PO QHS PRN 90 Days #90 tab 07/07/16 [Rx Confirmed 10/09/17 Last Taken Unknown] tamsulosin 0.4 mg capsule 0.4 mg PO QDAY 90 Days #90 cap 06/12/17 [Rx Confirmed 10/09/17 Last Taken Unknown] atorvastatin 20 mg tablet 20 mg PO QHS 90 Days #90 tab 08/31/17 [Rx Confirmed Last Taken Unknown] Medical - DS: Hosp Hospital course: Mr. Hutchinson is a 82 year old Male, with history of BPH, presented to the emergency room , with complaints of lower abdominal pain that has been bothering him for 3 days before presentation. The patient has not been able to pass much urine 3 for 3 days and therefore presented to the hospital Rico was placed in the ER , and it was noted that his creatinine was 6.3, he was therefore admitted to the hospital for further management. the patient was seen by nephrology, who followed the patient from stay. The patient still function improved and by the next day his creatinine was 1.1, The patient was discussed with DR Duggan, who plans to see the patient in 1 week , I am increasing his dose of flomax from 0.4 daily to 0.4 bid Renal usg done during the hospital showed chr renal cysts, and very enlarged prostate Patient will be discharged home with rico catheter in place. Discharge diagnosis: Acute retention of Urine, Acute Kidney Injury - Time Spent with Patient Total time spent providing and/or coordinating discharge services: Less than 30 minutes Medical - DS: Exam - Constitutional Vitals: Vital Signs Temp Pulse Resp BP BP Pulse Ox 10/10/17 12:00 98.6 F 69 18 148/75 95 10/10/17 07:06 95 10/10/17 06:48 98.6 F 63 16 124/72 95 10/10/17 04:00 97.8 F 64 18 95 10/10/17 00:00 98.2 F 65 18 97 10/09/17 20:19 98.4 F 16 157/79 97 10/09/17 19:35 98.7 F 16 140/79 96 10/09/17 15:36 98 F 16 93 Intake and Output 10/10/17 10/10/17 10/10/17 05:59 13:59 21:59 Intake Total 955 / 955 240 / 240 Output Total 1250 / 1250 800 / 800 Balance -295 / -295 -560 / -560 Intake: IV 955 / 955 Sodium Chloride 0.9% 1,000 ml @ 955 / 955 75 mls/hr IV .[id number] [facility] Rx#: [id number] Oral 240 / 240 Output: Urine Catheter Amount 1250 / 1250 800 / 800 Other: Meal Lunch Percent of Meal Consumed 100% Feeding Ability Assist with Tray Set Up Additional comments: Constitutional; Afebrile, cooperative, alert, not in distress. Eyes- No icterus, , No periorbital swelling Ears- Ext ear normal, hearing normal to conversation. Neck- Midline trachea, supple Respiratory system: Air Entry equal on both sides, No crackles or wheezing, no rhonchi. CVS- Rate rhythm regular, S1,S2 heard, no gallop, no rub. Abdomen- Soft nontender abdomen, no organomegaly, no tenderness, no guarding or rigidity, DRUGLESS PHYSICIAN- AOOx3, moving all extremities, no gross focal deficit noted. Medical - DS: Data Labs on day of discharge: Labs from last 24 hours 10/10/17 10/10/17 10/10/17 07:02 06:58 06:58 WBC 8.6 RBC 4.39 L Hgb 14.0 Hct 41.1 MCV 93.7 MCH 32.0 MCHC 34.1 RDW 13.8 Plt Count 147 MPV 9.9 Gran % 62.9 Lymph % (Auto) 17.0 [place] % (Auto) 14.0 H Eos % (Auto) 5.8 Baso % (Auto) 0.3 Gran # 5.4 Lymph # (Auto) 1.5 [place] # (Auto) 1.2 H Eos # (Auto) 0.5 Baso # (Auto) 0 Sodium Cancelled 143 Potassium Cancelled 4.4 Chloride Cancelled 107 Carbon Dioxide Cancelled 23 Anion Gap Cancelled 13.0 BUN Cancelled 22 Creatinine Cancelled 1.1 GFR Calculation Cancelled 63 Glucose Cancelled 91 Calcium Cancelled 8.7 Phosphorus Cancelled 3.1 Magnesium Cancelled 2.2 Albumin Cancelled 3.4 10/09/17 12:00 WBC RBC Hgb Hct MCV MCH MCHC RDW Plt Count MPV Gran % Lymph % (Auto) [place] % (Auto) Eos % (Auto) Baso % (Auto) Gran # Lymph # (Auto) [place] # (Auto) Eos # (Auto) Baso # (Auto) Sodium 143 Potassium 5.1 Chloride 107 Carbon Dioxide 19 L Anion Gap 17.0 H BUN 43 H Creatinine 4.2 H GFR Calculation 12 Glucose 93 Calcium 8.8 Phosphorus 4.2 Magnesium 2.4 Albumin 3.8 Medical - DS: A/P - Patient/Caregiver Discharge Instructions Activity: increase activity as tolerated Diet: Regular Diet Additional Instructions: You are being discharged home with the rico catheter in place, You need to keep the catheter well secured, and avoid tugging. Follow up with Dr Duggan in 1 week Keep your self well hydrated Go to the emergency if any new acute concerns, chest pain, fever, shortness of breath or significant bleeding in the urine bag. Take flomax 0.4mg twice daily. - Follow up Plan Follow up with: Gaurav Duggan MD [Physician] - Disposition: Home, Self-Care Prognosis: Fair Rehab Potential: Fair I certify that the patient requires SNF services: No Overall status at discharge: patient is back to baseline Medical - DS: Qual - VTE Deep Vein Thrombosis/Pulmonary Embolism Present on Admission: No
[2017-10-10] MEDS ORDERED: HEPARIN 5,000 UNIT/ML VIAL SQ SCH (21:00)
[2017-10-10] MEDS ORDERED: ATORVASTATIN 20 MG TABLET PO SCH ×2 (21:00)
[2017-10-10] MEDS ORDERED: FAMOTIDINE 20 MG TABLET PO SCH (21:00)
[2017-10-11] MEDS ORDERED: CALCIUM (OYSTER SHELL) 500 MG TABLET PO SCH ×2 (09:00)
[2017-10-11] MEDS ORDERED: VITAMIN D3 5,000 UNIT CAPSULE PO SCH ×2 (09:00)
== END 2017-10-10 16:02 | disposition home or self-care (01) | DRG 683 ==
LOC: ED 09:12 → ICU 12:05 → MEDSUR 10-10 13:40
PROVIDERS: ADMIT Internal Medicine; ATTEND Internal Medicine